=== PATIENT | female | born 1930 | race Two or more races ===

== ENCOUNTER → 2016-08-22 | Outpatient (CLI) | payer OTHER ==
[~2016-08-22] MED LIST: ASPI-231 PO; CALCTAB25 PO; CARV3.1213 PO; CITA-73 PO; CLOP75TA41 PO; IPRA0.03; LOR05T PO; MONT10TA34 PO; [UNRECOGNIZED DRUG - OTHER] IN
[2016-08-22 12:27] LABS: Basophils # (auto) 0 uL; Basophils % (auto) 0.2 % (0.0-2.0); DEFINITIVE VIEW TRANSMISSION; Eosinophils # (auto) 0.2 uL; Eosinophils % (auto) 1.3 % (0.0-7.0); Hematocrit 45.6 % (36.0-46.0); Hemoglobin 14.7 g/dL (12.2-16.2); Lymphocytes # (auto) 1.4 uL; Lymphocytes % (auto) 12.2 % (10.0-50.0); Mean Corpuscular Hemoglobin 30.1 pg (28.0-32.0); Mean Corpuscular Hgb Conc. 32.2 g/dL (32.0-36.0); Mean Corpuscular Volume 93.5 fL (80.0-100.0); Mean Platelet Volume 6.5 fL (7.4-10.4); Monocytes # (auto) 1.9 uL; Neutrophils # (auto) 8.3 uL; Neutrophils % (auto) 70.3 % (37.0-80.0); Platelet Count (auto) 585 10^3/uL (140-450); Red Cell Distribution Width 14.9 % (11.6-16.0); White Blood Cell 11.8 10^3/uL (4.4-10.8)
== END | disposition home or self-care (01) ==
LOC: LAB 11:15
PROVIDERS: ATTEND Family Medicine
DX: J18.9 Pneumonia, unspecified organism (principal)
CPT/HCPCS: 36415; 85025

== ENCOUNTER 2016-09-03 20:18 | Emergency (ER) | payer OTHER ==
[~2016-09-03] VITALS: Ht 152.4 cm; Wt 43.5 kg
[2016-09-03] MEDS ORDERED: HYDROmorphone HCL 2 MG/ML VL IV ONE ×2 (21:45→23:45)
[2016-09-03] MEDS ORDERED: ONDANSETRON HCL 4 MG/2 ML VIAL IV ONE (21:45)
[2016-09-03 23:40] VITALS: BP 110/64
== END 2016-09-03 23:57 | disposition short-term general hospital (02) ==
LOC: ER 20:22
DX: S42.402A Unspecified fracture of lower end of left humerus, initial encounter for closed fracture (principal); F17.210 Nicotine dependence, cigarettes, uncomplicated; J44.9 Chronic obstructive pulmonary disease, unspecified; I10 Essential (primary) hypertension; Z88.6 Allergy status to analgesic agent; Z88.8 Allergy status to other drugs, medicaments and biological substances; Z90.49 Acquired absence of other specified parts of digestive tract; Z96.642 Presence of left artificial hip joint; Z90.710 Acquired absence of both cervix and uterus; Z98.61 Coronary angioplasty status; W19.XXXA Unspecified fall, initial encounter; Y93.89 Activity, other specified; Y92.89 Other specified places as the place of occurrence of the external cause; Y99.8 Other external cause status
CPT/HCPCS: 29105; 73080; 73502; 96374; 96375; 96376; 99284; J1170; J2405

== ENCOUNTER 2016-09-19 11:01 | Day surgery (SDC) | payer OTHER ==
[~2016-09-19] VITALS: Ht 30.5 cm; Wt 0.5 kg
[2016-09-19] MEDS ORDERED: BUPIVACAINE 0.25% INJ 50ML VIAL ONE (11:21)
[2016-09-19] MEDS ORDERED: ceFAZolin 1GM VL ONE (11:21)
[2016-09-19] MEDS ORDERED: BUPIVACAINE W/ EPINEPH 0.25% INJ 50ML MDV ONE (11:21)
[2016-09-19 11:59] LABS: Albumin 3.1 g/dL (3.4-5.0); BUN/Creatinine Ratio 27.8; Bilirubin, Total 0.4 mg/dL (0.2-1.0); Calcium 8.9 mg/dL (8.5-10.1); Potassium 4.2 mmol/L (3.5-5.1); Total Protein 7.7 g/dL (6.4-8.2)
[2016-09-19 12:09] LABS: Basophils # (auto) 0 uL; Basophils % (auto) 0.2 % (0.0-2.0); Eosinophils # (auto) 0.1 uL; Eosinophils % (auto) 0.8 % (0.0-7.0); Hematocrit 41.2 % (36.0-46.0); Hemoglobin 13.6 g/dL (12.2-16.2); Lymphocytes # (auto) 1.9 uL; Lymphocytes % (auto) 15.1 % (10.0-50.0); Mean Corpuscular Hemoglobin 30.8 pg (28.0-32.0); Mean Corpuscular Hgb Conc. 32.9 g/dL (32.0-36.0); Mean Corpuscular Volume 93.5 fL (80.0-100.0); Mean Platelet Volume 6.2 fL (7.4-10.4); Monocytes # (auto) 1.1 uL; Monocytes % (auto) 9.1 % (0.0-12.0); Neutrophils # (auto) 9.4 uL; Neutrophils % (auto) 74.8 % (37.0-80.0); Platelet Count (auto) 686 10^3/uL (140-450); Red Cell Distribution Width 16.6 % (11.6-16.0); White Blood Cell 12.6 10^3/uL (4.4-10.8)
[2016-09-19 12:18] LABS: INR 0.98 (0.9-1.15); Partial Thromboplastin Time 27.6 sec (22.64-33.71); Prothrombin Time 10.1 sec (9.37-12.3)
[2016-09-19] MEDS ORDERED: SUCCINYLCHOLINE CHLORIDE 20 MG/ML 10ML VIAL IV ONE (13:49)
[2016-09-19] MEDS ORDERED: ceFAZolin 1GM/50ML D5W 50 ML IV ONE (13:49)
[2016-09-19] MEDS ORDERED: HYDROmorphone HCL 2 MG/ML VL ONE (14:36)
[2016-09-19] MEDS ORDERED: ETOMIDATE (2MG/ML) 20ML VIAL IV ONE (14:36)
[2016-09-19] MEDS ORDERED: MIDAZOLAM HCL 1MG/1ML-2 ML VIAL ONE (14:36)
[2016-09-19] MEDS ORDERED: ROCURONIUM 10MG/ML 10ML VIAL IV ONE ×2 (14:36)
[2016-09-19] MEDS ORDERED: ONDANSETRON HCL 4 MG/2 ML VIAL ONE (14:36)
[2016-09-19] MEDS ORDERED: fentaNYL CITRATE 100 MCG/2 ML VL ONE (14:36)
[2016-09-19] MEDS ORDERED: PROMETHAZINE HCL 25 MG/ML 1ML IM ONE (16:15)
[2016-09-19] MEDS ORDERED: KETOROLAC TROMETH 30 MG/ML 1ML VIAL IV ONE (16:15)
[2016-09-19] MEDS ORDERED: LABETALOL HCL 5 MG/ML 4ML SYRINGE IV PRN (16:15)
[2016-09-19] MEDS ORDERED: HYDROmorphone HCL 2 MG/ML VL IV PRN (16:15)
[2016-09-19 17:40] VITALS: BP 165/90
== END 2016-09-19 17:51 | disposition home or self-care (01) ==
LOC: SUR 11:01
PROVIDERS: ATTEND Orthopaedic Surgery
DX: S52.022B Displaced fracture of olecranon process without intraarticular extension of left ulna, initial encounter for open fracture type I or II (principal); J44.9 Chronic obstructive pulmonary disease, unspecified; Z90.710 Acquired absence of both cervix and uterus; F41.9 Anxiety disorder, unspecified; X58.XXXA Exposure to other specified factors, initial encounter; Y93.9 Activity, unspecified; Y92.9 Unspecified place or not applicable; Y99.9 Unspecified external cause status
CPT/HCPCS: 24105; 24685; 36415; 73070; 76000; 80053; 85025; 85610; 85730; C1713; J0330; J0690; J1170; J2250; J2405; J3010; J3490

== ENCOUNTER → 2017-01-10 | Outpatient (CLI) | payer OTHER ==
[~2017-01-10] MED LIST changes: +ALBUTEROL SULF 2.5 MG/0.5ML(0.5%) NEB SOLN ONE; +CAR3125T PO; -CARV3.1213 PO
== END | disposition home or self-care (01) ==
LOC: RT 08:31
PROVIDERS: ATTEND Internal Medicine Pulmonary Disease
DX: R06.00 Dyspnea, unspecified (principal); Z86.11 Personal history of tuberculosis
CPT/HCPCS: 94060; 94640

== ENCOUNTER → 2017-07-29 | Outpatient (CLI) | payer OTHER ==
[~2017-07-29] MED LIST changes: -ALBUTEROL SULF 2.5 MG/0.5ML(0.5%) NEB SOLN ONE; -CITA-73 PO; -LOR05T PO; +LORA-654 PO
== END | disposition home or self-care (01) ==
LOC: XY 09:25
PROVIDERS: ATTEND Internal Medicine
DX: I27.20 Pulmonary hypertension, unspecified (principal); I08.2 Rheumatic disorders of both aortic and tricuspid valves
CPT/HCPCS: 93306

== ENCOUNTER → 2017-07-30 | Outpatient (CLI) | payer OTHER ==
[~2017-07-30] VITALS: Ht 152.4 cm; Wt 46.3 kg
[~2017-07-30] MED LIST changes: +ADENOSINE 39 MG in GIVE UN-DILUTED 0 ML IV ONE
[2017-07-30 10:20] VITALS: BP 171/78
== END | disposition home or self-care (01) ==
LOC: XYW 08:39
PROVIDERS: ATTEND Internal Medicine Cardiovascular Disease
DX: I25.10 Atherosclerotic heart disease of native coronary artery without angina pectoris (principal)
CPT/HCPCS: 78452; 93017; A9500; J0153

== ENCOUNTER → 2017-08-18 | Outpatient (CLI) | payer OTHER ==
[~2017-08-18] MED LIST changes: -ADENOSINE 39 MG in GIVE UN-DILUTED 0 ML IV ONE
[2017-08-18 15:28] LABS: Basophils # (auto) 0 uL; Basophils % (auto) 0.6 % (0.0-2.0); Eosinophils # (auto) 0.3 uL; Eosinophils % (auto) 4.3 % (0.0-7.0); Hematocrit 46.1 % (36.0-46.0); Hemoglobin 15.7 g/dL (12.2-16.2); Lymphocytes # (auto) 1.6 uL; Lymphocytes % (auto) 20.5 % (10.0-50.0); Mean Corpuscular Hemoglobin 32.1 pg (28.0-32.0); Mean Corpuscular Volume 94.4 fL (80.0-100.0); Monocytes # (auto) 0.7 uL; Monocytes % (auto) 8.9 % (0.0-12.0); Neutrophils # (auto) 5.2 uL; Neutrophils % (auto) 65.7 % (37.0-80.0); Nucleated Red Blood Cells % 0.1 %; Platelet Count (auto) 364 10^3/uL (140-450); Red Blood Cells 4.89 10^6/uL (4.0-5.20); White Blood Cell 7.9 10^3/uL (4.4-10.8)
[2017-08-18 16:16] LABS: Albumin 3.3 g/dL (3.4-5.0); BUN/Creatinine Ratio 29.3; Bilirubin, Total 0.3 mg/dL (0.2-1.0); CRP High Sensitivity 0.06 mg/dL (< 0.3); Calcium 9.2 mg/dL (8.5-10.1); Potassium 3.7 mmol/L (3.5-5.1); Total Protein 7.2 g/dL (6.4-8.2)
[2017-08-18 16:39] LABS: Free T4 (Free Thyroxine) 0.9 ng/dL (0.89-1.76)
[2017-08-18 16:40] LABS: T3 Total 1.07 ng/mL (0.60-1.81)
[2017-08-18 16:44] LABS: Urine Bacteria NONE SEEN /hpf (None Seen); Urine Blood TRACE /uL (Negative); Urine Mucus FEW (None Seen); Urine Specific Gravity 1.024 (1.001-1.035); Urine WBC 1 /hpf (0 - 5)
== END | disposition home or self-care (01) ==
LOC: LAB 14:53
PROVIDERS: ATTEND Internal Medicine
DX: I25.10 Atherosclerotic heart disease of native coronary artery without angina pectoris (principal); E78.5 Hyperlipidemia, unspecified
CPT/HCPCS: 36415; 80053; 80061; 81001; 82306; 82607; 83036; 84439; 84443; 84480; 85025; 86141

== ENCOUNTER → 2018-10-06 | Outpatient (CLI) | payer OTHER ==
[2018-10-06 10:17] LABS: Basophils # (auto) 0 uL; Basophils % (auto) 0.7 % (0.0-2.0); Eosinophils # (auto) 0.2 uL; Hematocrit 52.1 % (36.0-46.0); Hemoglobin 17.5 g/dL (12.2-16.2); Lymphocytes # (auto) 1.5 uL; Lymphocytes % (auto) 24.7 % (10.0-50.0); Mean Corpuscular Hemoglobin 31.3 pg (28.0-32.0); Mean Corpuscular Hgb Conc. 33.6 g/dL (32.0-36.0); Mean Corpuscular Volume 93.2 fL (80.0-100.0); Monocytes # (auto) 0.7 uL; Monocytes % (auto) 11.9 % (0.0-12.0); Neutrophils # (auto) 3.5 uL; Neutrophils % (auto) 58.7 % (37.0-80.0); Nucleated Red Blood Cells % 0.4 %; Platelet Count (auto) 342 10^3/uL (140-450); Red Blood Cells 5.59 10^6/uL (4.0-5.20); Red Cell Distribution Width 14.6 % (11.8-14.3)
[2018-10-06 10:42] LABS: Albumin 3.1 g/dL (3.4-5.0); Potassium 3.8 mmol/L (3.5-5.1)
[2018-10-06 10:49] LABS: Bilirubin, Total 0.4 mg/dL (0.2-1.0); Calcium 9.2 mg/dL (8.5-10.1); Total Protein 7.5 g/dL (6.4-8.2)
== END | disposition home or self-care (01) ==
LOC: LAB 09:46
PROVIDERS: ATTEND Physician Assistant
DX: I11.0 Hypertensive heart disease with heart failure (principal); I50.1 Left ventricular failure, unspecified; M81.0 Age-related osteoporosis without current pathological fracture; J43.1 Panlobular emphysema; E78.5 Hyperlipidemia, unspecified
CPT/HCPCS: 36415; 80053; 80061; 85025